=== PATIENT | female | born 2000 | race Caucasian/White ===

== ENCOUNTER 2025-01-23 23:39 | Observation (INO) | payer OTHER ==
[2025-01-24] MEDS ORDERED: ACYCLOVIR 400 MG TAB PO SCH (02:00)
--- NOTE | 2025-01-24 18:21 | PR ---
[facility] [address], [place] [address] Signed AP Progress Notes Datetime Report Generated by CPN: 01/24/2025 18:21 Chief Complaint: Fall w/ contractions PHYSICAL EXAM: [id number] General: Normal HEENT: Normal Neurologic: Normal Thyroid: Normal Cardiovascular: Normal Respiratory: Normal Back: Normal Abdomen: Normal Extremities: Normal Physical Exam Comments: Fundus nontender. No edema Impression: IUP @ 37w0d Fall w/ contractions Cat 1 tracing Plan: No s/sx of abruption. Anticipate d/c home at 24 hrs of observation. F/U for routine OB care All questions answered. VITAL SIGNS: [id number] Vital Signs: Reviewed; Within Normal Limits EXAM: [id number] Dilatation: 2.5 Effacement: 50 Station: -3 Contraction Comments: q 1-4 minutes - not feeling MEMBRANES: [id number] Membranes: Intact FETUS A: [id number] FHR Baseline: 125 Variability: Moderate 6-25bpm Accelerations: 15X15 Deceleration: None FHR Category: Category I FHR Comments: No evidence of metabolic acidosis or abruption FETUS B: [id number] PROGRESS NOTES: [id number] *Electronically Signed* 01/24/25 1821 RENETTA HOPPER) DO PATIENT NAME: OLGA WOOTEN PROGRESS NOTE DATE OF : 02 PHYSICIAN: RENETTA HOPPER (JD) DO RPT #: [id number] REPORT IS CONFIDENTIAL AND NOT TO BE RELEASED WITHOUT AUTHORIZATION [facility] [address] [facility] [place], [place] [address] Signed Signing Physician: Renetta Hopper DO Copies: ~ *Electronically Signed* 01/24/25 182 RENETTA HOPPER) DO PATIENT NAME: OLGA WOOTEN PROGRESS NOTE DATE OF : 02 PHYSICIAN: RENETTA HOPPER (JD) DO RPT #: [id number] REPORT IS CONFIDENTIAL AND NOT TO BE RELEASED WITHOUT AUTHORIZATION
[2025-01-26 09:42] LABS: STREPTOCOCCUS (GROUP B) BY PCR Detected (()); STREPTOCOCCUS (GROUP B) SOURCE Vaginal/Rectal (())
== END 2025-01-24 23:50 | disposition home or self-care (01) ==
LOC: FBCO 23:39 → FBC 01-24 01:39
PROVIDERS: ADMIT Obstetrics & Gynecology; ATTEND Obstetrics & Gynecology
DX: O9A.213 Injury, poisoning and certain other consequences of external causes complicating pregnancy, third trimester (principal); O99.013 Anemia complicating pregnancy, third trimester; Z3A.37 37 weeks gestation of pregnancy; W10.9XXA Fall (on) (from) unspecified stairs and steps, initial encounter; Y92.009 Unspecified place in unspecified non-institutional (private) residence as the place of occurrence of the external cause
CPT/HCPCS: 59025; 87653; A9270; G0463

== ENCOUNTER 2025-02-14 06:20 | Inpatient (IN) | payer OTHER ==
[~2025-02-14] VITALS: Ht 172.7 cm; Wt 108.0 kg
[2025-02-14] MEDS ORDERED: OXYTOCIN/0.9 % SODIUM CHLORIDE 30 UNITS/500 ML BAG IV SCH ×2 (06:30→11:15)
[2025-02-14] MEDS ORDERED: LACTATED RINGER'S 1,000 ML IV PRN (06:30)
[2025-02-14] MEDS ORDERED: CALCIUM CARBONATE 500 MG CHEW PO PRN ×2 (06:30→15:45)
[2025-02-14] MEDS ORDERED: MAGNESIUM HYDROXIDE/AL HYDROX 30 ML CUP PO PRN ×2 (06:30→15:45)
[2025-02-14] MEDS ORDERED: OXYTOCIN/0.9 % SODIUM CHLORIDE 500 ML IV SCH ×2 (06:45→15:45)
[2025-02-14 06:55] LABS: HEMATOCRIT 27.4 % (34.1-44.9); HEMOGLOBIN 8.7 g/dL (11.2-15.7); MCHC 31.8 g/dL (32.2-35.5); MCV 75.7 fL (79.4-94.8); RBC 3.62 M/uL (3.93-5.22)
[2025-02-14 07:06] VITALS: BP 122/78
[2025-02-14] MEDS ORDERED: PENICILLIN G POTASSIUM 5 MUNITS in SODIUM CHLORIDE 0.9% 100 ML IV ONE ×3 (07:15→11:30)
[2025-02-14 07:16] LABS: AMPHETAMINES, URINE NEGATIVE (NEGATIVE); BENZODIAZEPINE, URINE NEGATIVE (NEGATIVE); BUPRENORPHINE, URINE NEGATIVE (NEGATIVE); CANNABINOID, URINE POSITIVE (NEGATIVE); COCAINE, URINE NEGATIVE (NEGATIVE); ECSTASY, URINE NEGATIVE (NEGATIVE); FENTANYL, URINE NEGATIVE (NEGATIVE); METHADONE, URINE NEGATIVE (NEGATIVE); OPIATES, URINE NEGATIVE (NEGATIVE); OXYCODONE, URINE NEGATIVE (NEGATIVE); PHENCYCLIDINE, URINE NEGATIVE (NEGATIVE)
[2025-02-14] MEDS ORDERED: PENICILLIN G POTASSIUM 2.5 MUNITS in DEXTROSE 5% 100 ML IV SCH ×2 (07:17→11:30)
[2025-02-14 08:02] LABS: ABO A; ANTIBODY SCREEN NEGATIVE; RH POSITIVE
[2025-02-14 08:03] LABS: ABO A; RH POSITIVE
[2025-02-14 08:03] LABS: IS CROSSMATCH COMPATIBLE
[2025-02-14] MEDS ORDERED: fentaNYL citrate 100 MCG/2 ML VIAL ONE (11:58)
[2025-02-14] MEDS ORDERED: ROPIVACAINE 0.2% 200 ML BAG ONE (11:58)
[2025-02-14] MEDS ORDERED: LACTATED RINGER'S 2,000 ML IV ONE (12:45)
[2025-02-14] MEDS ORDERED: ROPIVACAINE 0.2% 200 ML BAG EPIDURAL SCH (12:45)
[2025-02-14] MEDS ORDERED: ePHEDrine sulfate 5 MG/ML SYRINGE IV PRN (12:45)
[2025-02-14] MEDS ORDERED: LACTATED RINGER'S 500 ML IV PRN (12:45)
[2025-02-14 13:16] LABS: HEMATOCRIT 30.1 % (34.1-44.9); HEMOGLOBIN 9.1 g/dL (11.2-15.7); MCH 23.3 PG (25.6-32.2); MCHC 30.2 g/dL (32.2-35.5); PLATELET COUNT 288 K/uL (182-369); RBC 3.91 M/uL (3.93-5.22)
[2025-02-14 13:32] LABS: ALBUMIN 2.8 g/dL (3.4-5.0); ALBUMIN/GLOBULIN RATIO 0.6 (1.1-2.4); ANION GAP 12.8 (7-21); BILIRUBIN, TOTAL 0.3 mg/dL (0.2-1.0); BUN/CREATININE RATIO 12.72 (6.0-28.6); CALCIUM 9.4 mg/dL (8.5-10.1); CREATININE, SERUM 0.55 mg/dL (0.55-1.02); POTASSIUM 3.8 mmol/L (3.5-5.1); PROTEIN, TOTAL 7.5 g/dL (6.4-8.2)
[2025-02-14 13:36] LABS: CREATININE, RANDOM URINE 28.24 mg/dL (NOT ESTABLISHED); PROTEIN, RANDOM URINE <6 mg/dL (NOT ESTABLISHED)
[2025-02-14] MEDS ORDERED: TRANEXAMIC ACID IN NACL,ISO-OS 100 ML IV ONE (14:15)
[2025-02-14] MEDS ORDERED: IBUPROFEN 600 MG TAB PO PRN (15:45)
[2025-02-14] MEDS ORDERED: HYDROCORTISONE ACETATE 25 MG SUPP PR PRN (15:45)
[2025-02-14] MEDS ORDERED: WITCH HAZEL/GLYCERIN 1 EA PAD TOP PRN (15:45)
[2025-02-14] MEDS ORDERED: LIDOCAINE 2% VISCOUS 6 ML SYR TOP ONE ×2 (15:45)
[2025-02-14] MEDS ORDERED: BENZOCAINE 60 ML AEROSOL TOP PRN (15:45)
[2025-02-14] MEDS ORDERED: MAGNESIUM HYDROXIDE 30 ML UDC PO PRN (15:45)
[2025-02-14] MEDS ORDERED: ACETAMINOPHEN 325 MG TAB PO PRN (15:45)
[2025-02-14] MEDS ORDERED: SENNOSIDES/DOCUSATE 1 EA TAB PO SCH (21:00)
== END 2025-02-15 16:25 | disposition home or self-care (01) | DRG 806 ==
LOC: FBC 06:20
PROVIDERS: ADMIT Advanced Practice Midwife; ATTEND Advanced Practice Midwife
PROC: 10E0XZZ Delivery of Products of Conception, External Approach (ICD-10-PCS; principal; 2025-02-14)
PROC: 10907ZC Drainage of Amniotic Fluid, Therapeutic from Products of Conception, Via Natural or Artificial Opening (ICD-10-PCS; 2025-02-14)
PROC: 4A0H7CZ Measurement of Products of Conception, Cardiac Rate, Via Natural or Artificial Opening (ICD-10-PCS; 2025-02-14)
PROC: 3E033VJ Introduction of Other Hormone into Peripheral Vein, Percutaneous Approach (ICD-10-PCS; 2025-02-14)
DX: O99.02 Anemia complicating childbirth (principal); O98.52 Other viral diseases complicating childbirth; Z37.0 Single live birth; Z3A.40 40 weeks gestation of pregnancy; O99.824 Streptococcus B carrier state complicating childbirth; O76 Abnormality in fetal heart rate and rhythm complicating labor and delivery; O48.0 Post-term pregnancy; B00.9 Herpesviral infection, unspecified; Z87.440 Personal history of urinary (tract) infections
CPT/HCPCS: 01960; 36415; 80053; 80307; 82565; 82570; 83615; 84156; 84550; 85027; 85060; 86850; 86900; 86901; 86922; A9270; J2540; J2795; J3010; J7121